=== PATIENT | female | born 1975 | race Two or more races ===

== ENCOUNTER 2018-07-18 08:48 | Emergency (ER) | payer OTHER ==
[~2018-07-18] VITALS: Ht 147.3 cm; Wt 68.0 kg
[~2018-07-18 08:48] MED LIST: ADVAIR 2501 DISK W/1 IH; HYZAAR 100-251 UDTAB PO; METFORMIN HCL500 MG PO; SINGULAIR4 MG PO
== END 2018-07-18 14:40 | disposition home or self-care (01) ==
LOC: ER 08:48
DX: K52.9 Noninfective gastroenteritis and colitis, unspecified (principal); B34.9 Viral infection, unspecified; R10.84 Generalized abdominal pain

== ENCOUNTER 2024-10-02 19:47 | Emergency (ER) | payer OTHER ==
[~2024-10-02] VITALS: Ht 148.6 cm; Wt 68.0 kg
[2024-10-02] MEDS ORDERED: KETOROLAC TROMETHAMINE 30 MG VIAL IM STA (23:48)
[2024-10-02] MEDS ORDERED: KETOROLAC TROMETHAMINE 60 MG VIAL IM ONE (23:53)
== END 2024-10-03 00:03 | disposition home or self-care (01) ==
LOC: ER 19:49
DX: M54.9 Dorsalgia, unspecified (principal); W18.39XA Other fall on same level, initial encounter; Y93.89 Activity, other specified; Y92.89 Other specified places as the place of occurrence of the external cause; Z88.0 Allergy status to penicillin